=== PATIENT | female | born 1975 | race Caucasian/White ===

== ENCOUNTER 2016-10-17 11:18 | Emergency (ER) | payer OTHER ==
[2016-10-17 12:40] VITALS: BP 108/62
--- NOTE | 2016-10-17 13:05 | UC ---
Abdominal Pain Female HPI - HPI Summary HPI Summary: patient c/o fever, sharp left lower abdominal pain, and gas worsening since 10/05. Pt states she went [facility] 10/04/[address] scan, ultrasound to check IUD placement, and was told she had an "inflamed bladder" given Keflex. Pt states she finished the antibiotic and symptoms began to worsen again. Hysteroscopy on 09/22/16 which may have been the original cause for her Sx but not sure. SHe also about that time went to [facility] and had significant amount of meat. Now the pain has been returning, she still is about 50% better than on 10/05/16 but since she finished the keflex the fever has returned , she finished Abx 6 days ago. SHe will be going to General Surgery for "liver lesion" that was found on recent CT which will be seen by General Surgery no later than 10/27/16. [ End ] - History of Current Complaint Chief Complaint: UCGI Stated Complaint: LOWER LEFT ABD PAIN,FEVER Time Seen by Provider: 10/17/16 13:03 Hx Obtained From: Patient Hx Last Menstrual Period: 09/27/16 Onset/Duration: Gradual Onset Timing: Constant Severity Initially: Mild Severity Currently: Moderate Location: Discrete At: LLQ Radiates: No Character: Aching Aggravating Factor(s): Movement Associated Signs and Symptoms: Positive: Negative, Fever Allergies/Adverse Reactions: Allergies Allergy/AdvReac Type Severity Reaction Status Date / Time Tetracycline AdvReac Nausea And Verified 10/17/16 12:41 Vomiting Home Medications: Home Medications Ibuprofen TAB* [Advil TAB*] 400 mg PO Q6H PRN 10/17/16 [History Confirmed ] Sertraline* [Zoloft*] 100 mg PO DAILY 10/17/16 [History Confirmed 10/17/16] PMH/Surg Hx/FS Hx/Imm Hx Previously Healthy: Yes Endocrine History Of: Denies: Diabetes Cardiovascular History Of: Denies: Cardiac Disorders Respiratory History Of: Reports: Asthma GI/ History Of: Denies: Ulcer, Gastrointestinal Bleed Psychological History Of: Denies: Anxiety Cancer History Of: Denies: Lung Cancer, Breast Cancer - Surgical History Surgical History: Yes Surgery Procedure, Year, and Place: 2006 - Family History Known Family History: Positive: None - Social History Occupation: Employed Full-time Lives: With Family Alcohol Use: Occasionally Substance Use Type: None Smoking Status (MU): Never Smoked Tobacco Household Exposure Type: Pipe Review of Systems Constitutional: Fever Skin: Negative Eyes: Negative ENT: Negative Respiratory: Negative Cardiovascular: Negative Gastrointestinal: Abdominal Pain Genitourinary: Negative Motor: Negative Neurovascular: Negative Musculoskeletal: Negative Neurological: Negative Psychological: Anxious All Other Systems Reviewed And Are Negative: Yes Physical Exam Triage Information Reviewed: Yes Appearance: Well-Appearing, No Pain Distress, Well-Nourished Vital Signs: Initial Vital Signs Temp 98.9 F 10/17/16 12:31 Pulse 91 10/17/16 12:31 Resp 15 10/17/16 12:31 BP 108/62 10/17/16 12:31 Pulse Ox 98 10/17/16 12:31 Vital Signs Reviewed: Yes Eye Exam: Normal ENT Exam: Normal Dental Exam: Normal Neck exam: Normal Neck: Positive: 1 Respiratory Exam: Normal Cardiovascular Exam: Normal Abdomen Description: Positive: No Organomegaly, Soft, Other: - LLQ tenderness to palpation. Negative: Bruit, CVA Tenderness (R), CVA Tenderness (L), Distended, Guarding, Hernia @, Hepatomegaly, Peritoneal Signs, Pulsatile Mass, Splenomegaly Bowel Sounds: Positive: Present Musculoskeletal Exam: Normal Neurological Exam: Normal Psychological Exam: Normal Skin Exam: Normal Abd Pain Female Course/Dx - Course Course Of Treatment: Had long discussion with patient. Could be diverticulitis at this time with the moderate LLQ pain with low grade fever. Had CT scan and tranvaginal sono 10/05/16 and no acute findings. Has general Surgery appt in 10 days, she will call to get on cancellation list. Had some improvement with keflex but if diverticulitis would not be first line treatment for diverticulitis -- she is aware we can order CT but no labs or sono here. She wants to start treatment with antibiotics and start probiotics and if Sx not improved will go to ED for CT. SHe prefers to see general surgery before she has more radiation / CT scan. SHe is aware of SE of meds. No acute abdomen at this time. She finished Keflex 5-6 days ago, likely U/A would be falsely negative. Clinical diverticulitis. - Differential Dx/Diagnosis Differential Diagnosis: Gall Bladder Disease, Hepatitis, Pelvic Inflammatory Disease, Peptic Ulcer Disease, Renal Colic Provider Diagnoses: Diverticulitis Discharge - Discharge Plan Condition: Good Disposition: HOME Prescriptions: Ciprofloxacin HCl [Cipro 500 MG TAB] 500 mg PO BID #20 tab Metronidazole [Flagyl 500 MG TAB] 500 mg PO TID #30 tab Patient Education Materials: Diverticulitis (ED) Referrals: Ashley Forbes MD [Primary Care Provider] - 3 Days (Also call to see if you can get an earlier appt with your General Surgeon.)
== END 2016-10-17 13:43 | disposition home or self-care (01) ==
LOC: UCCORT 11:18
DX: K57.92 Diverticulitis of intestine, part unspecified, without perforation or abscess without bleeding (principal); R50.9 Fever, unspecified; J45.909 Unspecified asthma, uncomplicated; Z88.1 Allergy status to other antibiotic agents
CPT/HCPCS: 99202; G0463